=== PATIENT | female | born 1960 | race Caucasian/White ===

== ENCOUNTER 2020-04-17 11:02 | Outpatient (REF) | payer MEDICARE, MEDICAID, SELFPAY ==
[2020-04-17 14:04] LABS: INTERNATIONAL NORM RATIO 3.1 (0.9-1.1); Prothrombin Time 37.6 SEC (10.8-13.0)
== END 2020-04-17 11:03 | disposition home or self-care (01) ==
LOC: HO.HMGCLR 11:02
PROVIDERS: PCP Internal Medicine; Visit Provider Internal Medicine
DX: Z79.01 Long term (current) use of anticoagulants (principal)
CPT/HCPCS: 36415; 85610

== ENCOUNTER 2020-04-21 09:00 | Outpatient (REF) | payer MEDICARE, MEDICAID, SELFPAY ==
--- NOTE | 2020-04-21 | CT_ITS ---
EXAMINATION: CT CHEST SCREENING CLINICAL INFORMATION: Smoker. COMPARISON: CT chest 03/21/2019. TECHNIQUE: Multidetector volumetric CT imaging of the chest is performed without contrast using low dose technique. Additional 2D coronal and sagittal reformatted images and axial 3D maximum intensity projection (MIP) images are generated on the CT workstation. This CT examination was performed using dose optimization techniques as appropriate, variously including the following: *Automated exposure control *Adjustment of mA and/or kV according to patient size (this includes techniques or standardized protocols for targeted exams where dose is matched to indication/reason for exam; i.e. extremities or head) *Use of iterative reconstruction technique DLP: 50 mGy-cm. FINDINGS: LUNGS: The lungs are well-expanded and clear of acute pneumonic consolidation. There is no pulmonary nodule, mass or consolidation. Previously seen left subpleural density in the left lower lobe is not visualized at this time. No other nodules seen. MEDIASTINUM: The thyroid lobes are symmetrical and normal. Central trachea and the bronchi are widely patent. Heart size and the great vessels are normal caliber. There are coronary artery calcifications present. There is no pericardial effusion. PLEURA: There is no pleural effusion. No pleural mass or thickening. AXILLA: No lymphadenopathy. UPPER ABDOMEN: Visualized liver, spleen, pancreas and bilateral adrenal glands are unremarkable. OSSEOUS STRUCTURES: No lytic or sclerotic process seen. CT/CT lung screening IMPRESSION: No evidence of pulmonary nodules seen at this time. ASSESSMENT: Lung RADS category 1, benign. RECOMMENDATION: Annual low-dose CT chest follow-up.
== END 2020-04-21 09:01 | disposition home or self-care (01) ==
LOC: HO.CT 09:00
PROVIDERS: Visit Provider Physician Assistant Medical
DX: Z12.2 Encounter for screening for malignant neoplasm of respiratory organs (principal); F17.210 Nicotine dependence, cigarettes, uncomplicated
CPT/HCPCS: 71250

== ENCOUNTER 2020-05-01 10:00 | Outpatient (REF) | payer MEDICARE, MEDICAID, SELFPAY ==
[2020-05-01 11:28] LABS: INTERNATIONAL NORM RATIO 3.2 (0.9-1.1); Prothrombin Time 37.9 SEC (10.8-13.0)
== END 2020-05-01 10:01 | disposition home or self-care (01) ==
LOC: HO.HMGCLR 10:00
PROVIDERS: PCP Internal Medicine; Visit Provider Internal Medicine
DX: Z79.01 Long term (current) use of anticoagulants (principal)
CPT/HCPCS: 36415; 85610

== ENCOUNTER 2020-05-26 07:21 | Outpatient (REF) | payer MEDICARE, MEDICAID, SELFPAY ==
[2020-05-26 11:14] LABS: Basophils Absolute Auto 0.1 X10*3/uL (0.0-0.2); Basophils Percent Auto 0.9 % (0-2); Eosinophils Absolute Auto 0.3 X10*3/uL (0.0-0.4); Eosinophils Percent Auto 3.9 % (0-4); Hematocrit 43.3 % (37-47); Hemoglobin 14.3 g/dl (12.0-16.0); Imm Gran Abs Auto 0.01 X10*3/uL (0.00-0.03); Imm Gran Pct Auto 0.1 % (0.0-0.4); Lymphocytes Absolute Auto 5.1 X10*3/uL (1.2-4.9); Lymphocytes Percent Auto 58.1 % (20-40); MANUAL DIFF FLAG SCAN; Mean Corpuscular Hemoglobin 30.4 pg (27.0-33.0); Mean Corpuscular Volume 92.1 fL (80-98); Mean Platelet Volume 10.1 fL (9.4-12.3); Monocytes Absolute Auto 0.5 X10*3/uL (0.1-1.2); Monocytes Percent Auto 6.1 % (2-11); Neutrophils Absolute Auto 2.7 X10*3/uL (2.0-8.3); Neutrophils Percent Auto 30.9 % (45-73); Platelet Count 402 X10*3/uL (160-400); Red Cell Distribution Width 13.8 % (11.0-16.0); SCAN SMEAR FLAG 1; White Blood Count 8.8 X10*3/uL (4.8-10.8)
[2020-05-26 11:25] LABS: INTERNATIONAL NORM RATIO 3.3 (0.9-1.1); Prothrombin Time 39.5 SEC (10.8-13.0)
[2020-05-26 11:36] LABS: SLIDE REVIEW VERIFIED
[2020-05-26 11:42] LABS: Anion Gap 15 (12-20); Blood Urea Nitrogen 21 mg/dL (9-16); Calcium 9.3 mg/dL (8.4-10.2); Carbon Dioxide 25 mmol/L (22-29); Chloride 104 mmol/L (96-108); Cholesterol 251 mg/dL; Estimated Glomerular Filt Rate > 60; Glucose Fasting 92 mg/dL (60-99); HDL Cholesterol 56 mg/dL; LDL Cholesterol Calculated 163 mg/dl; Potassium 4.6 mmol/l (3.3-5.1); Sodium 139 mmol/L (135-145); Triglycerides 162 mg/dL
[2020-05-26 12:05] LABS: TSH reflex Free T4 1.95 mIU/mL (0.32-4.0)
== END 2020-05-26 07:22 | disposition home or self-care (01) ==
LOC: HO.HMGCLDS 07:21
PROVIDERS: PCP Internal Medicine; Visit Provider Internal Medicine
DX: F41.1 Generalized anxiety disorder (principal); G47.9 Sleep disorder, unspecified; K21.9 Gastro-esophageal reflux disease without esophagitis; R35.1 Nocturia; Z79.01 Long term (current) use of anticoagulants
CPT/HCPCS: 36415; 80048; 80061; 84443; 85025; 85610

== ENCOUNTER 2020-06-10 09:50 | Outpatient (REF) | payer MEDICARE, MEDICAID, SELFPAY ==
[2020-06-10 11:28] LABS: INTERNATIONAL NORM RATIO 1.8 (0.9-1.1); Prothrombin Time 21.3 SEC (10.8-13.0)
== END 2020-06-10 09:51 | disposition home or self-care (01) ==
LOC: HO.HMGCLR 09:50
PROVIDERS: PCP Internal Medicine; Visit Provider Internal Medicine
DX: Z79.01 Long term (current) use of anticoagulants (principal)
CPT/HCPCS: 36415; 85610

== ENCOUNTER 2020-06-30 13:53 | Outpatient (REF) | payer MEDICARE, MEDICAID, SELFPAY ==
[2020-06-30 16:38] LABS: INTERNATIONAL NORM RATIO 2.6 (0.9-1.1); Prothrombin Time 31.7 SEC (10.8-13.0)
== END 2020-06-30 13:54 | disposition home or self-care (01) ==
LOC: HO.HMGCLDS 13:53
PROVIDERS: PCP Internal Medicine; Visit Provider Internal Medicine
DX: Z79.01 Long term (current) use of anticoagulants (principal)
CPT/HCPCS: 36415; 85610

== ENCOUNTER 2020-07-30 09:37 | Outpatient (REF) | payer MEDICARE, MEDICAID, SELFPAY ==
[2020-07-30 11:23] LABS: INTERNATIONAL NORM RATIO 1.3 (0.9-1.1); Prothrombin Time 15.3 SEC (10.8-13.0)
== END 2020-07-30 09:38 | disposition home or self-care (01) ==
LOC: HO.HMGCLDS 09:37
PROVIDERS: PCP Internal Medicine; Visit Provider Internal Medicine
DX: Z79.01 Long term (current) use of anticoagulants (principal)
CPT/HCPCS: 36415; 85610

== ENCOUNTER 2020-08-20 07:11 | Outpatient (REF) | payer MEDICARE, MEDICAID, SELFPAY ==
[2020-08-20 11:23] LABS: INTERNATIONAL NORM RATIO 3.5 (0.9-1.1); Prothrombin Time 41.9 SEC (10.8-13.0)
== END 2020-08-20 07:12 | disposition home or self-care (01) ==
LOC: HO.HMGCLDS 07:11
PROVIDERS: PCP Internal Medicine; Visit Provider Internal Medicine
DX: Z79.01 Long term (current) use of anticoagulants (principal)
CPT/HCPCS: 36415; 85610

== ENCOUNTER 2020-08-29 08:58 | Outpatient (REF) | payer MEDICARE, MEDICAID, SELFPAY ==
[2020-08-29 11:22] LABS: INTERNATIONAL NORM RATIO 3.4 (0.9-1.1); Prothrombin Time 40.5 SEC (10.8-13.0)
== END 2020-08-29 08:59 | disposition home or self-care (01) ==
LOC: HO.HMGCLDS 08:58
PROVIDERS: PCP Internal Medicine; Visit Provider Internal Medicine
DX: Z79.01 Long term (current) use of anticoagulants (principal)
CPT/HCPCS: 36415; 85610

== ENCOUNTER 2020-09-24 10:20 | Outpatient (REF) | payer MEDICARE, MEDICAID, SELFPAY ==
[2020-09-24 11:35] LABS: INTERNATIONAL NORM RATIO 2.8 (0.9-1.1)
== END 2020-09-24 10:21 | disposition home or self-care (01) ==
LOC: HO.HMGCLDS 10:20
PROVIDERS: PCP Internal Medicine; Visit Provider Internal Medicine
DX: Z79.01 Long term (current) use of anticoagulants (principal)
CPT/HCPCS: 36415; 85610

== ENCOUNTER 2020-10-24 10:18 | Outpatient (REF) | payer MEDICARE, MEDICAID, SELFPAY ==
[2020-10-24 11:55] LABS: INTERNATIONAL NORM RATIO 2.8 (0.9-1.1); Prothrombin Time 33.1 SEC (10.8-13.0)
== END 2020-10-24 10:19 | disposition home or self-care (01) ==
LOC: HO.HMGCLDS 10:18
PROVIDERS: PCP Internal Medicine; Visit Provider Internal Medicine
DX: Z79.01 Long term (current) use of anticoagulants (principal)
CPT/HCPCS: 36415; 85610

== ENCOUNTER 2020-11-05 10:54 | Outpatient (REF) | payer MEDICARE, MEDICAID, SELFPAY ==
[2020-11-05 13:59] LABS: MANUAL DIFF FLAG NO
[2020-11-05 14:03] LABS: Basophils Percent Auto 0.5 % (0-2); Eosinophils Absolute Auto 0.1 X10*3/uL (0.0-0.4); Eosinophils Percent Auto 1.4 % (0-4); Hematocrit 41.6 % (37-47); Hemoglobin 13.7 g/dl (12.0-16.0); Imm Gran Abs Auto 0.02 X10*3/uL (0.00-0.03); Imm Gran Pct Auto 0.3 % (0.0-0.4); Lymphocytes Absolute Auto 3.1 X10*3/uL (1.2-4.9); Mean Corpuscular HGB Conc 32.9 g/dl (31.0-35.0); Mean Platelet Volume 10.1 fL (9.4-12.3); Monocytes Absolute Auto 0.4 X10*3/uL (0.1-1.2); Monocytes Percent Auto 4.8 % (2-11); Neutrophils Absolute Auto 3.7 X10*3/uL (2.0-8.3); Platelet Count 387 X10*3/uL (160-400); Red Blood Count 4.57 X10*6/uL (4.20-5.50); Red Cell Distribution Width 13.7 % (11.0-16.0); White Blood Count 7.3 X10*3/uL (4.8-10.8)
[2020-11-05 14:15] LABS: INTERNATIONAL NORM RATIO 2.7 (0.9-1.1); Prothrombin Time 32.8 SEC (10.8-13.0)
[2020-11-05 14:26] LABS: Alanine Aminotransferase 22 U/L (0-31); Albumin Level 4.5 g/dL (3.5-5.0); Alkaline Phosphatase 76 U/L (39-117); Anion Gap 12 (12-20); Aspartate Amino Transferase 20 U/L (5-31); Bilirubin Total 0.2 mg/dL (0.0-1.0); Blood Urea Nitrogen 21 mg/dL (9-16); Calcium 9.7 mg/dL (8.4-10.2); Carbon Dioxide 25 mmol/L (22-29); Chloride 107 mmol/L (96-108); Estimated Glomerular Filt Rate > 60; Glucose Random 111 mg/dL (60-115); Potassium 4.4 mmol/L (3.3-5.1); Sodium 140 mmol/L (135-145); Total Protein 7.1 g/dL (6.5-8.0)
[2020-11-05 14:48] LABS: TSH reflex Free T4 0.72 uIU/mL (0.32-4.0)
[2020-11-05 15:31] LABS: Vitamin B12 161 pg/mL (200-900)
[2020-11-06 08:16] LABS: LDL Cholesterol Direct 172 mg/dL (<100)
[2020-11-08 14:27] LABS: Vitamin D 25-OH, D2 <4 ng/mL; Vitamin D 25-OH, D3 33 ng/mL; Vitamin D 25-OH, Total 33 ng/mL (30-100)
== END 2020-11-05 10:55 | disposition home or self-care (01) ==
LOC: HO.HMGCLDS 10:54
PROVIDERS: PCP Internal Medicine; Visit Provider Internal Medicine
DX: R53.82 Chronic fatigue, unspecified (principal); G47.9 Sleep disorder, unspecified; F41.1 Generalized anxiety disorder; G44.89 Other headache syndrome; M62.838 Other muscle spasm; M85.80 Other specified disorders of bone density and structure, unspecified site; D68.51 Activated protein C resistance; K21.9 Gastro-esophageal reflux disease without esophagitis; Z79.01 Long term (current) use of anticoagulants; Z72.0 Tobacco use
CPT/HCPCS: 36415; 80053; 82306; 82607; 83721; 84443; 85025; 85610

== ENCOUNTER 2020-12-15 09:25 | Outpatient (REF) | payer MEDICARE, MEDICAID, SELFPAY ==
[2020-12-15 11:33] LABS: INTERNATIONAL NORM RATIO 2.4 (0.9-1.1); Prothrombin Time 28.5 SEC (10.8-13.0)
== END 2020-12-15 09:26 | disposition home or self-care (01) ==
LOC: HO.HMGCLDS 09:25
PROVIDERS: PCP Internal Medicine; Visit Provider Internal Medicine
DX: Z79.01 Long term (current) use of anticoagulants (principal)
CPT/HCPCS: 36415; 85610

== ENCOUNTER 2021-01-13 09:05 | Outpatient (REF) | payer MEDICARE, MEDICAID, SELFPAY ==
[2021-01-13 11:35] LABS: INTERNATIONAL NORM RATIO 2.7 (0.9-1.1); Prothrombin Time 31.5 SEC (9.9-13.0)
== END 2021-01-13 09:06 | disposition home or self-care (01) ==
LOC: HO.HMGCLDS 09:05
PROVIDERS: PCP Internal Medicine; Visit Provider Internal Medicine
DX: Z79.01 Long term (current) use of anticoagulants (principal)
CPT/HCPCS: 36415; 85610

== ENCOUNTER 2021-02-13 10:04 | Outpatient (REF) | payer MEDICARE, MEDICAID, SELFPAY ==
[2021-02-13 12:02] LABS: INTERNATIONAL NORM RATIO 2.6 (0.9-1.1)
== END 2021-02-13 10:05 | disposition home or self-care (01) ==
LOC: HO.HMGCLDS 10:04
PROVIDERS: PCP Internal Medicine; Visit Provider Internal Medicine
DX: M85.80 Other specified disorders of bone density and structure, unspecified site (principal); Z79.01 Long term (current) use of anticoagulants
CPT/HCPCS: 36415; 85610

== ENCOUNTER → 2021-04-20 13:18 | Outpatient (BNVA) | payer MEDICARE, MEDICAID, SELFPAY | PROVIDERS: PCP Internal Medicine; Referring Provider Internal Medicine; Visit Provider Internal Medicine | DX: R94.31 Abnormal electrocardiogram [ECG] [EKG] (principal); R07.2 Precordial pain; R06.02 Shortness of breath; F17.200 Nicotine dependence, unspecified, uncomplicated | CPT/HCPCS: 93005; 99202 ==

== ENCOUNTER 2021-05-20 09:11 | Outpatient (REF) | payer MEDICARE, MEDICAID, SELFPAY ==
[2021-05-20 11:30] LABS: INTERNATIONAL NORM RATIO 2.7 (0.9-1.1); Prothrombin Time 31.6 SEC (9.9-13.0)
== END 2021-05-20 09:12 | disposition home or self-care (01) ==
LOC: HO.HMGCLDS 09:11
PROVIDERS: PCP Internal Medicine; Visit Provider Internal Medicine
DX: Z79.01 Long term (current) use of anticoagulants (principal)
CPT/HCPCS: 36415; 85610

== ENCOUNTER 2021-05-22 13:34 | Outpatient (REF) | payer MEDICARE, MEDICAID, SELFPAY ==
--- NOTE | ~2021-05-22 | MM_ITS ---
EXAMINATION: MM SCREENING DIGITAL BREAST TOMOSYNTHESIS, BILATERAL CLINICAL INFORMATION: Screening. Asymptomatic. The lifetime risk of breast cancer based on the Tyrer-Cuzick Model is 5.5%. COMPARISON: Mammography: August 05, 2017 and December 21, 2011 TECHNIQUE: Digital breast tomosynthesis is performed in both the craniocaudal and mediolateral oblique views along with computer-aided detection (CAD). Synthesized 2D images are generated from the tomosynthesis. FINDINGS: There are scattered areas of fibroglandular density (ACR BI-RADS breast composition Category b). There are no significant masses, abnormal calcifications, or other abnormalities. MM/MM tomosynthesis screening BI IMPRESSION: There are no significant changes from prior study. ASSESSMENT: BI-RADS 1: Negative RECOMMENDATION: Routine annual mammography screening. This patient's information was entered into a reminder system with a target due date for their next mammogram.
== END 2021-05-22 13:35 | disposition home or self-care (01) ==
LOC: HO.MAMMO 13:34
PROVIDERS: Visit Provider Internal Medicine
DX: Z12.31 Encounter for screening mammogram for malignant neoplasm of breast (principal)
CPT/HCPCS: 77063; 77067

== ENCOUNTER 2021-06-17 11:05 | Outpatient (REF) | payer MEDICARE, MEDICAID, SELFPAY ==
[2021-06-17 14:50] LABS: Prothrombin Time 35.2 SEC (9.9-13.0)
[2021-06-17 15:12] LABS: Alanine Aminotransferase 23 U/L (0-31); Albumin Level 4.5 g/dL (3.5-5.0); Alkaline Phosphatase 71 U/L (39-117); Anion Gap 13 (12-20); Aspartate Amino Transferase 17 U/L (5-31); Bilirubin Total 0.2 mg/dL (0.0-1.0); Blood Urea Nitrogen 20 mg/dL (9-16); Calcium 9.7 mg/dL (8.4-10.2); Carbon Dioxide 23 mmol/L (22-29); Chloride 108 mmol/L (96-108); Cholesterol 259 mg/dL; Estimated Glomerular Filt Rate > 60; Glucose Fasting 95 mg/dL (60-99); HDL Cholesterol 52 mg/dL; LDL Cholesterol Calculated 161 mg/dl; Potassium 4.3 mmol/L (3.3-5.1); Sodium 140 mmol/L (135-145); Total Protein 7.3 g/dL (6.5-8.0); Triglycerides 232 mg/dL
[2021-06-17 15:33] LABS: TSH reflex Free T4 0.83 uIU/mL (0.32-4.0)
[2021-06-17 15:34] LABS: Vitamin B12 287 pg/mL (200-900)
[2021-06-22 13:13] LABS: Vitamin D 25-OH, D2 <4 ng/mL; Vitamin D 25-OH, D3 38 ng/mL; Vitamin D 25-OH, Total 38 ng/mL (30-100)
== END 2021-06-17 11:06 | disposition home or self-care (01) ==
LOC: HO.HMGCLDS 11:05
PROVIDERS: PCP Internal Medicine; Visit Provider Internal Medicine
DX: G44.89 Other headache syndrome (principal); F41.1 Generalized anxiety disorder; G47.9 Sleep disorder, unspecified; K21.9 Gastro-esophageal reflux disease without esophagitis; D68.51 Activated protein C resistance; E53.8 Deficiency of other specified B group vitamins; E78.9 Disorder of lipoprotein metabolism, unspecified; Z79.01 Long term (current) use of anticoagulants
CPT/HCPCS: 36415; 80053; 80061; 82306; 82607; 84443; 85610

== ENCOUNTER 2021-07-27 10:12 | Outpatient (REF) | payer MEDICARE, MEDICAID, SELFPAY ==
[2021-07-27 11:24] LABS: INTERNATIONAL NORM RATIO 3.6 (0.9-1.1); Prothrombin Time 41.9 SEC (9.9-13.0)
== END 2021-07-27 10:13 | disposition home or self-care (01) ==
LOC: HO.HMGCLDS 10:12
PROVIDERS: Visit Provider Internal Medicine
DX: Z79.01 Long term (current) use of anticoagulants (principal)
CPT/HCPCS: 36415; 85610

== ENCOUNTER 2021-08-07 09:07 | Outpatient (REF) | payer MEDICARE, MEDICAID, SELFPAY ==
[2021-08-07 11:57] LABS: INTERNATIONAL NORM RATIO 2.3 (0.9-1.1); Prothrombin Time 26.4 SEC (9.9-13.0)
== END 2021-08-07 09:08 | disposition home or self-care (01) ==
LOC: HO.HMGCLDS 09:07
PROVIDERS: Visit Provider Internal Medicine
DX: Z79.01 Long term (current) use of anticoagulants (principal)
CPT/HCPCS: 36415; 85610

== ENCOUNTER 2021-10-31 07:16 | Emergency (ER) | payer MEDICARE, MEDICAID, SELFPAY | END 2021-10-31 09:19 | disposition left against medical advice (07) | PROVIDERS: Emergency Provider Emergency Medicine; PCP Internal Medicine | DX: M79.605 Pain in left leg (principal) ==

== ENCOUNTER 2021-10-31 10:52 | Outpatient (REF) | payer MEDICARE, MEDICAID, SELFPAY ==
[2021-10-31 13:31] LABS: Hematocrit 40.5 % (37.0-47.0); Hemoglobin 13.2 g/dl (12.0-16.0); Mean Corpuscular HGB Conc 32.6 g/dl (31.0-35.0); Mean Corpuscular Hemoglobin 29.9 pg (27.0-33.0); Mean Corpuscular Volume 91.6 fL (80.0-98.0); Platelet Count 396 X10*3/uL (160-400); Red Blood Count 4.42 X10*6/uL (4.20-5.50); Red Cell Distribution Width 14.4 % (11.0-16.0); White Blood Count 8.5 X10*3/uL (4.8-10.8)
[2021-10-31 13:39] LABS: INTERNATIONAL NORM RATIO 1.9 (0.9-1.1); Prothrombin Time 21.3 SEC (9.9-13.0)
[2021-10-31 13:49] LABS: D Dimer High Sensitivity < 150 NG/ML
[2021-11-02 08:22] LABS: Folate 18.2 ng/mL (> or = 4.0); Vitamin B12 654 pg/mL (200-900)
[2021-11-04 09:45] LABS: Intrinsic Factor Antibodies Negative (Negative)
[2021-11-05 23:15] LABS: Parietal Cell Antibody <=20.0 Unit (<=20.0)
== END 2021-10-31 10:53 | disposition home or self-care (01) ==
LOC: HO.HMGCLDS 10:52
PROVIDERS: Visit Provider Physician Assistant
DX: Z13.89 Encounter for screening for other disorder (principal)
CPT/HCPCS: 36415; 82607; 82746; 83516; 85027; 85379; 85610; 86340

== ENCOUNTER 2021-10-31 12:54 | Outpatient (REF) | payer MEDICARE, MEDICAID, SELFPAY ==
--- NOTE | ~2021-10-31 | US_ITS ---
EXAMINATION: LEFT LOWER EXTREMITY DEEP VENOUS ULTRASOUND CLINICAL INFORMATION: Left lower extremity swelling. History of factor V Leiden. COMPARISON: None. TECHNIQUE: Duplex Doppler imaging with compression maneuvers were performed of the left lower extremity deep venous system. FINDINGS: The visualized common femoral, femoral and popliteal veins demonstrate normal compressibility and color flow without evidence of venous thrombosis. Visualized portions of the calf veins demonstrate normal color fill-in suggesting patency. There is no evidence of a Ahuja's cyst. US/US venous duplex LE LT IMPRESSION: No evidence of deep venous thrombosis involving the left lower extremity.
== END 2021-10-31 12:55 | disposition home or self-care (01) ==
LOC: HO.US 12:54
PROVIDERS: Visit Provider Physician Assistant
DX: R60.0 Localized edema (principal); M79.89 Other specified soft tissue disorders
CPT/HCPCS: 36415; 82607; 82746; 83516; 85027; 85379; 85610; 86340; 93971

== ENCOUNTER 2021-12-07 08:47 | Outpatient (REF) | payer MEDICARE, MEDICAID, SELFPAY ==
[2021-12-07 11:52] LABS: INTERNATIONAL NORM RATIO 4.2 (0.9-1.1); Prothrombin Time 49.3 SEC (9.9-13.0)
== END 2021-12-07 08:48 | disposition home or self-care (01) ==
LOC: HO.HMGCLDS 08:47
PROVIDERS: PCP Internal Medicine; Visit Provider Internal Medicine
DX: Z79.01 Long term (current) use of anticoagulants (principal)
CPT/HCPCS: 36415; 85610

== ENCOUNTER → 2022-01-04 14:00 | Outpatient (BNVA) | payer MEDICARE, MEDICAID, SELFPAY | PROVIDERS: PCP Internal Medicine; Visit Provider Internal Medicine | DX: R06.09 Other forms of dyspnea (principal); F17.210 Nicotine dependence, cigarettes, uncomplicated | CPT/HCPCS: 99202 ==

== ENCOUNTER 2022-01-08 15:50 | Outpatient (REF) | payer MEDICARE, MEDICAID, SELFPAY ==
--- NOTE | 2022-01-08 17:31 | PFT_ITS ---
INDICATION: Wheezing. SPIROMETRY: The FEV1 to FVC of 84% with an FEV1 of 2.35 L, which is 101% predicted and an FVC of 2.78 L, which is 92% predicted. No significant response to bronchodilators noted. Maximum voluntary ventilation 120% predicted. LUNG VOLUMES: Total lung capacity 101% predicted with an expiratory reserve volume of 16% predicted. DIFFUSION CAPACITY: DLCO 81% predicted. COMPARISONS: None. INTERPRETATION: No obstructive nor restrictive ventilatory defects identified. No significant response to bronchodilators noted. Normal maximum voluntary ventilation. Lung volumes are normal except for decrease in the expiratory reserve volume secondary to an elevated BMI. The patient also has a low normal diffusion capacity. If asthma is in the differential, methacholine challenge may be helpful in assessing for hyper-reactive airways, otherwise clinical diagnosis is warranted. MD ELIEZER Deng/MODFrantz / [id number]
== END 2022-01-08 15:51 | disposition home or self-care (01) ==
LOC: HO.RESP 15:50
PROVIDERS: PCP Internal Medicine; Visit Provider Internal Medicine
DX: R06.2 Wheezing (principal); R06.89 Other abnormalities of breathing
CPT/HCPCS: 94060; 94727; 94729

== ENCOUNTER 2022-01-20 09:30 | Outpatient (REF) | payer MEDICARE, MEDICAID, SELFPAY ==
[2022-01-20 11:38] LABS: INTERNATIONAL NORM RATIO 3.9 (0.9-1.1); Prothrombin Time 46.9 SEC (10.0-13.1)
== END 2022-01-20 09:31 | disposition home or self-care (01) ==
LOC: HO.HMGCLR 09:30
PROVIDERS: PCP Internal Medicine; Visit Provider Internal Medicine
DX: Z79.01 Long term (current) use of anticoagulants (principal)
CPT/HCPCS: 36415; 85610

== ENCOUNTER → 2022-01-27 13:20 | Outpatient (BNVA) | payer MEDICARE, MEDICAID, SELFPAY | PROVIDERS: PCP Internal Medicine; Visit Provider Internal Medicine | DX: D68.51 Activated protein C resistance (principal); Z79.01 Long term (current) use of anticoagulants; Z51.81 Encounter for therapeutic drug level monitoring | CPT/HCPCS: 85610; 99202 ==

== ENCOUNTER → 2022-02-04 13:46 | Outpatient (BNVA) | payer MEDICARE, MEDICAID, SELFPAY | PROVIDERS: PCP Internal Medicine; Visit Provider Internal Medicine | DX: D68.51 Activated protein C resistance (principal); F41.1 Generalized anxiety disorder; R06.09 Other forms of dyspnea; F17.210 Nicotine dependence, cigarettes, uncomplicated; Z79.01 Long term (current) use of anticoagulants; Z51.81 Encounter for therapeutic drug level monitoring | CPT/HCPCS: 85610; 99211; 99212 ==

== ENCOUNTER → 2022-02-12 13:16 | Outpatient (BNVA) | payer MEDICARE, MEDICAID, SELFPAY | PROVIDERS: PCP Internal Medicine; Visit Provider Internal Medicine | DX: D68.51 Activated protein C resistance (principal); Z79.01 Long term (current) use of anticoagulants; Z51.81 Encounter for therapeutic drug level monitoring | CPT/HCPCS: 85610; 99211 ==

== ENCOUNTER 2022-02-24 09:35 | Outpatient (REF) | payer MEDICARE, MEDICAID, SELFPAY ==
[2022-02-24 12:17] LABS: Alanine Aminotransferase 19 U/L (0-31); Albumin Level 4.5 g/dL (3.5-5.0); Alkaline Phosphatase 85 U/L (39-117); Anion Gap 16 (12-20); Aspartate Amino Transferase 17 U/L (5-31); Bilirubin Total 0.3 mg/dL (0.0-1.0); Blood Urea Nitrogen 16 mg/dL (9-16); Calcium 9.5 mg/dL (8.4-10.2); Carbon Dioxide 24 mmol/L (22-29); Chloride 105 mmol/L (96-108); Estimated Glomerular Filt Rate > 60; Glucose Random 125 mg/dL (60-115); Potassium 4.3 mmol/L (3.3-5.1); Sodium 141 mmol/L (135-145); Total Protein 7.6 g/dL (6.5-8.0)
[2022-02-24 13:21] LABS: Vitamin B12 283 pg/mL (200-900)
[2022-02-25 15:56] LABS: LDL Cholesterol Direct 160 mg/dL (<100)
== END 2022-02-24 09:36 | disposition home or self-care (01) ==
LOC: HO.HMGCLDS 09:35
PROVIDERS: PCP Internal Medicine; Visit Provider Internal Medicine
DX: Z01.818 Encounter for other preprocedural examination (principal); M62.838 Other muscle spasm; R53.82 Chronic fatigue, unspecified; E78.9 Disorder of lipoprotein metabolism, unspecified; H26.9 Unspecified cataract
CPT/HCPCS: 36415; 80053; 82607; 83721

== ENCOUNTER → 2022-02-26 13:18 | Outpatient (BNVA) | payer MEDICARE, MEDICAID, SELFPAY | PROVIDERS: PCP Internal Medicine; Visit Provider Internal Medicine | DX: D68.51 Activated protein C resistance (principal); Z79.01 Long term (current) use of anticoagulants; Z51.81 Encounter for therapeutic drug level monitoring | CPT/HCPCS: 85610; 99211 ==

== ENCOUNTER 2022-03-08 07:29 | Day surgery (SDC) | payer MEDICARE, MEDICAID, SELFPAY ==
[2022-03-02 16:43] VITALS: BMI 35.3
--- NOTE | 2022-03-04 13:33 | MHC.SHP ---
Pre-Procedural Eval Section A Date of Service: 03/04/22 The patient is an INPATIENT: No Changes since office visit: No Cold of Flu in the past 2 weeks, No New Medical Problems, No Changes in Medication and No Patient answered all questions The History & Physical has been completed within 30 days and I have reviewed it.: Yes Section B Chief Complaint: cataract Allergies: Allergies Allergy/AdvReac Type Severity Reaction Status Date / Time aspirin Allergy Unknown anaphylaxis Verified 02/26/22 13:21 NSAIDS (Non-Steroidal AdvReac Abdominal Verified 02/26/22 13:21 Anti-Inflamma Pain Plan Diagnosis/Plan: Unchanged I have reviewed the history and physical and performed a pertinent physical examination on my patient. No changes have occurred unless specified.
--- NOTE | 2022-03-05 09:32 | HO.ANESPROP2 ---
Documented by User: Dona Farrar NP 03/05/22 09:33 HPI - Anesthesia Eval Consult details Narrative: 61yo F for Left Cataract Extraction IOL Insertion PCP cleared No previous cataract on record Warfarin for Factor V PMFSH Active Problems Active Problems: All Active Problems (Updated 02/24/22 @ 09:25 by Shilo Combs MD) Cataract (Acute) GERD (gastroesophageal reflux disease) (Acute) Nocturia (Acute) Cough (Acute) Pre-op evaluation (Acute) Muscle spasms of both lower extremities (Acute) Chronic fatigue (Acute) Low vitamin B12 level (Acute) Lipid disorder (Acute) Medicare annual wellness visit, initial (Acute) Breast screening (Acute) Colonoscopy refused (Acute) Glaucoma, left eye (Acute) Encounter for routine gynecological examination (Acute) Abnormal EKG (Acute) Precordial chest pain (Acute) Smoking (Acute) Left leg swelling (Acute) Difficulty breathing (Acute) Wheezing (Acute) Current use of anticoagulant therapy (Acute) Dyspnea on exertion (Acute) Factor 5 Leiden mutation, heterozygous (Acute) Warfarin anticoagulation (Acute) Headache syndrome (Acute) Anxiety, generalized (Acute) Difficulty sleeping (Acute) Tobacco abuse (Acute) Shortness of breath (Acute) Osteopenia (Acute) Past Medical History Medical History Anxiety, generalized Difficulty sleeping Dyspnea on exertion Factor 5 Leiden mutation, heterozygous Headache syndrome Memory difficulties Osteopenia Shortness of breath Smoker Tobacco abuse Warfarin anticoagulation Family History Family History Father No problems noted. Mother HTN (hypertension) Stroke Factor V Leiden Sister No problems noted. Other Mental health disorder Surgical History Surgical History History of ankle surgery History of tubal ligation Social History Social History Housing: House Housing Other:: Rents room in Sisters house Are you a primary managed care provider to a significant other at home: No Do you presently have visiting nurse or other home services: No Alcohol intake: never Patient Tobacco Use Status: Current everyday Tobacco user Tobacco use type: Cigarette Cigarette Packs Per Day: 0.35 Cigarettes Per Day: 10.0 Years Smoked: 50 e-Cigarette/Vaping Use: Currently Using Second Hand Smoke Exposure: No Use of substances other than those prescribed or required for medical reasons: Yes Substance Use Frequency: Daily Are you DNR?: No Advance Directives: No Advance Directives Information Provided: Yes Advance Directives on File: No service: No Current occupational status: unemployed 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 Current occupational exposures/hazards: No Cognitive needs: No Hearing needs: No Vision needs: No Meds Allergies Allergy/AdvReac Type Severity Reaction Status Date / Time aspirin Allergy Unknown anaphylaxis Verified 02/26/22 13:21 NSAIDS (Non-Steroidal AdvReac Abdominal Verified 02/26/22 13:21 Anti-Inflamma Pain Home Medications Medication Instructions Recorded Confirmed Last Taken Type fluticasone furoate 200 1 puff inhalation DAILY 03/02/22 03/02/22 Unknown History mcg-vilanterol 25 mcg/dose inhalation powder (Breo Ellipta) Exam Exam Date and Time: March 05, 2022 0932 Height,Weight and Vital Signs: Height 5 ft 2 in Weight 87.543 kg Assessment and Plan Assessment Anesthesia Assessment: Chart Reviewed Documented by User: Milo Jacobs MD 03/08/22 09:17 [facility] Past Medical History Medical History Anxiety, generalized Difficulty sleeping Dyspnea on exertion Factor 5 Leiden mutation, heterozygous Headache syndrome Memory difficulties Osteopenia Shortness of breath Smoker Tobacco abuse Warfarin anticoagulation Family History Family History Father No problems noted. Mother HTN (hypertension) Stroke Factor V Leiden Sister No problems noted. Other Mental health disorder Family history of problems with anesthesia: No Surgical History Surgical History History of ankle surgery History of tubal ligation History of Problems with Anesthesia: No Social History Social History Housing: House Housing Other:: Rents room in [facility] house Are you a primary managed care provider to a significant other at home: No Do you presently have visiting nurse or other home services: No Alcohol intake: never Patient Tobacco Use Status: Current everyday Tobacco user Tobacco use type: Cigarette Cigarette Packs Per Day: 0.35 Cigarettes Per Day: 10.0 Years Smoked: 50 e-Cigarette/Vaping Use: Currently Using Second Hand Smoke Exposure: No Use of substances other than those prescribed or required for medical reasons: Yes Substance Use Frequency: Daily Are you DNR?: No Advance Directives: No Advance Directives Information Provided: Yes Advance Directives on File: No service: No Current occupational status: unemployed 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 Current occupational exposures/hazards: No Cognitive needs: No Hearing needs: No Vision needs: No Meds Allergies Allergy/AdvReac Type Severity Reaction Status Date / Time aspirin Allergy Unknown anaphylaxis Verified 02/26/22 13:21 NSAIDS (Non-Steroidal AdvReac Abdominal Verified 02/26/22 13:21 Anti-Inflamma Pain Home Medications Medication Instructions Recorded Confirmed Last Taken Type fluticasone furoate 200 1 puff inhalation DAILY 03/02/22 03/02/22 Unknown History mcg-vilanterol 25 mcg/dose inhalation powder (Breo Ellipta) Exam Airway Mallampati Class: II TM Dist: >3cm Neck ROM: Full Loose/Missing/Broken Teeth: Yes (none loose poor dentition) Heart: [id number] Lungs: cta b/l Assessment and Plan Assessment Anesthesia Assessment: Anesthesia Plan Discussed Final Anesthetic Review Family History of Problems with Anesthesia: No History of Problems with Anesthesia: No NPO: Yes ASA Class: III Final Preanesthetic Review: No Changes in Pt Med Stat, Meds/Allgs Chart Reviewed, Consent Obtained/Reviewed and Anes Risks/Benef Reviewed Patient Risk: Intermediate Procedure Risk: Low Assessment/Block/Sedation in SS: Assess/Block/Sedation-SS Anesthetic Plan Anesthetic Plan: MAC: and Agree w/ Assess. and Plan Disposition: Standard PACU
[2022-03-08 08:41] VITALS: BP 115/69; PULSE 60; RESP 17; TEMP 36.6; O2SAT 97
[2022-03-08] MEDS: Tetracaine HCl/PF 0.5% Oph Sol 4 ML DROPS 1 DROP EYE-LEFT (08:44)
[2022-03-08] MEDS: Lactated Ringers 500 ML 50 ML IV (08:49)
[2022-03-08] MEDS: Cyclopentolate 1 % Ophth Sol 2 ML DRPBTL 1 DROP EYE-LEFT ×3 (08:50→09:01)
[2022-03-08] MEDS: Tropicamide 1 % Ophth Sol 3 ML BTL 1 DROP EYE-LEFT ×3 (08:51→09:02)
[2022-03-08] MEDS: Phenylephrine HCL 2.5% Oph SoL 2 ML BOTTLE 1 DROP EYE-LEFT ×3 (08:53→09:04)
--- NOTE | 2022-03-08 09:44 | HO.PNOPHT ---
Ophthalmology Procedure Procedure Date of Service: 03/08/22 Ophthalmology Viscoelastic: Healimelda Duet Dual Pack Pro Ophthalmology Lenses: TECLAYO [id number] (18) Procedure Notes: PREOPERATIVE DIAGNOSIS: Decreased visual acuity left eye secondary to cataract POSTOPERATIVE DIAGNOSIS: Same PROCEDURE: Left cataract extraction with intraocular lens insertion SURGEON: Francis Parker M.D. ANESTHESIA: Topical/MAC ESTIMATED BLOOD LOSS: None COMPLICATIONS: None After obtaining informed consent, the patient was brought to the operation room suite and placed in the supine position. After adequate sedation per anesthesia, topical drops of Tetracaine were given to the left eye. The eye was then prepped and draped in the usual sterile fashion. The operating room microscope was then positioned over the operative eye and a lid speculum placed. A paracentesis was created. Viscoelastic was then instilled into the anterior chamber. A three plane incision was then created temporally, utilizing a 2.85 mm keratome. Capsulotomy forceps were then utilized to create a circular tear capsulotomy. Hydrodissection and hydrodelineation were carried out until adequate mobilization of the nucleus occurred. Phacoemulsification was then utilized to remove the dense central nucleus followed by removal of the cortical material utilizing the automated aspiration irrigation unit. Viscoat elastic was instilled into the posterior capsular bag followed by placement of a posterior chamber intraocular lens without difficulty. The residual Viscoat elastic was then removed utilizing the automated IA machine. The wound was check and found to be watertight. The patient tolerated the procedure well and the lid speculum was removed. Intracameral injection of Vigamox 0.1 mL followed by a subtenon injection of Kenalog-40 0.2 mL were administered. The patient will be seen in the a.m.
[2022-03-08 10:11] VITALS: BP 132/69; PULSE 54; RESP 16; TEMP 36.6; O2SAT 95
== END 2022-03-08 10:15 | disposition home or self-care (01) ==
PROVIDERS: PCP Internal Medicine; Visit Provider Ophthalmology
PROC: (CPT 66985; principal; 2022-03-08 09:30)
DX: H25.12 Age-related nuclear cataract, left eye (principal); H54.7 Unspecified visual loss; Z83.511 Family history of glaucoma; J44.9 Chronic obstructive pulmonary disease, unspecified; D68.51 Activated protein C resistance; E78.9 Disorder of lipoprotein metabolism, unspecified; R53.82 Chronic fatigue, unspecified; G44.89 Other headache syndrome; R06.02 Shortness of breath; M85.80 Other specified disorders of bone density and structure, unspecified site; F41.1 Generalized anxiety disorder; F17.210 Nicotine dependence, cigarettes, uncomplicated; Z79.01 Long term (current) use of anticoagulants; Z79.51 Long term (current) use of inhaled steroids; Z88.8 Allergy status to other drugs, medicaments and biological substances
CPT/HCPCS: 66984; J2250; J3010; J3300; V2632

== ENCOUNTER → 2022-03-16 11:23 | Outpatient (BNVA) | payer MEDICARE, MEDICAID, SELFPAY | PROVIDERS: PCP Internal Medicine; Visit Provider Internal Medicine | DX: D68.51 Activated protein C resistance (principal); Z79.01 Long term (current) use of anticoagulants; Z51.81 Encounter for therapeutic drug level monitoring | CPT/HCPCS: 85610; 99211 ==

== ENCOUNTER 2022-04-09 14:26 | Outpatient (REF) | payer MEDICARE, MEDICAID, SELFPAY ==
[2022-04-09 16:43] LABS: INTERNATIONAL NORM RATIO 2.4 (0.9-1.1); Prothrombin Time 28.4 SEC (10.0-13.1)
== END 2022-04-09 14:27 | disposition home or self-care (01) ==
LOC: HO.HMGCLDS 14:26
PROVIDERS: PCP Internal Medicine; Visit Provider Internal Medicine
DX: D68.51 Activated protein C resistance (principal); Z79.01 Long term (current) use of anticoagulants
CPT/HCPCS: 36415; 85610

== ENCOUNTER 2022-05-28 12:45 | Outpatient (REF) | payer MEDICARE, MEDICAID, SELFPAY ==
[2022-05-28 14:27] LABS: INTERNATIONAL NORM RATIO 3.1 (0.9-1.1); Prothrombin Time 37.5 SEC (10.0-13.1)
== END 2022-05-28 12:46 | disposition home or self-care (01) ==
LOC: HO.HMGCLDS 12:45
PROVIDERS: PCP Internal Medicine; Visit Provider Internal Medicine
DX: D68.51 Activated protein C resistance (principal); Z79.01 Long term (current) use of anticoagulants
CPT/HCPCS: 36415; 85610

== ENCOUNTER 2022-07-10 06:31 | Outpatient (REF) | payer MEDICARE, MEDICAID, SELFPAY ==
[2022-07-10 11:17] LABS: MANUAL DIFF FLAG NO
[2022-07-10 11:26] LABS: Basophils Absolute Auto 0.1 X10*3/uL (0.0-0.2); Basophils Percent Auto 0.9 % (0-2); Eosinophils Absolute Auto 0.3 X10*3/uL (0.0-0.4); Eosinophils Percent Auto 3.8 % (0-4); Hematocrit 46.1 % (37.0-47.0); Imm Gran Abs Auto 0.02 X10*3/uL (0.00-0.03); Imm Gran Pct Auto 0.2 % (0.0-0.4); Lymphocytes Absolute Auto 4.3 X10*3/uL (1.2-4.9); Lymphocytes Percent Auto 48.7 % (20-40); Mean Corpuscular HGB Conc 32.5 g/dl (31.0-35.0); Mean Corpuscular Hemoglobin 29.2 pg (27.0-33.0); Mean Corpuscular Volume 89.9 fL (80.0-98.0); Mean Platelet Volume 11.1 fL (9.4-12.3); Monocytes Absolute Auto 0.6 X10*3/uL (0.1-1.2); Monocytes Percent Auto 6.5 % (2-11); Neutrophils Absolute Auto 3.5 x10*3/uL (2.0-8.3); Neutrophils Percent Auto 39.9 % (45-73); Platelet Count 398 X10*3/uL (160-400); Red Blood Count 5.13 X10*6/uL (4.20-5.50); Red Cell Distribution Width 14.1 % (11.0-16.0); White Blood Count 8.9 X10*3/uL (4.8-10.8)
[2022-07-10 11:37] LABS: Prothrombin Time 36.2 SEC (10.0-13.1)
[2022-07-10 11:49] LABS: Alanine Aminotransferase 15 U/L (0-31); Albumin Level 4.4 g/dL (3.5-5.0); Alkaline Phosphatase 77 U/L (39-117); Anion Gap 15 (12-20); Aspartate Amino Transferase 13 U/L (5-31); Bilirubin Total 0.3 mg/dL (0.0-1.0); Blood Urea Nitrogen 19 mg/dL (9-16); Calcium 9.7 mg/dL (8.4-10.2); Carbon Dioxide 22 mmol/L (22-29); Chloride 109 mmol/L (96-108); Cholesterol 246 mg/dL; Estimated Glomerular Filt Rate > 60; Glucose Fasting 94 mg/dL (60-99); HDL Cholesterol 47 mg/dL; LDL Cholesterol Calculated 161 mg/dl; Potassium 4.5 mmol/L (3.3-5.1); Sodium 141 mmol/L (135-145); Total Protein 7.1 g/dL (6.5-8.0); Triglycerides 190 mg/dL
== END 2022-07-10 06:32 | disposition home or self-care (01) ==
LOC: HO.HMGCLDS 06:31
PROVIDERS: PCP Internal Medicine; Visit Provider Internal Medicine
DX: D68.51 Activated protein C resistance (principal); E53.8 Deficiency of other specified B group vitamins; E78.9 Disorder of lipoprotein metabolism, unspecified; K21.9 Gastro-esophageal reflux disease without esophagitis; Z72.0 Tobacco use; Z79.01 Long term (current) use of anticoagulants
CPT/HCPCS: 36415; 80053; 80061; 85025; 85610

== ENCOUNTER 2022-09-13 13:23 | Outpatient (REF) | payer MEDICARE, MEDICAID, SELFPAY ==
[2022-09-13 16:43] LABS: INTERNATIONAL NORM RATIO 3.5 (0.9-1.1); Prothrombin Time 42.8 SEC (10.0-13.1)
== END 2022-09-13 13:24 | disposition home or self-care (01) ==
LOC: HO.HMGCLDS 13:23
PROVIDERS: PCP Internal Medicine; Visit Provider Internal Medicine
DX: D68.51 Activated protein C resistance (principal); Z79.01 Long term (current) use of anticoagulants
CPT/HCPCS: 36415; 85610

== ENCOUNTER 2022-11-17 10:50 | Outpatient (REF) | payer MEDICARE, MEDICAID, SELFPAY ==
[2022-11-17 14:23] LABS: INTERNATIONAL NORM RATIO 1.6 (0.9-1.1); Prothrombin Time 19.1 SEC (10.0-13.1)
== END 2022-11-17 10:51 | disposition home or self-care (01) ==
LOC: HO.HMGCLDS 10:50
PROVIDERS: PCP Internal Medicine; Visit Provider Internal Medicine
DX: D68.51 Activated protein C resistance (principal); Z79.01 Long term (current) use of anticoagulants
CPT/HCPCS: 36415; 85610

== ENCOUNTER 2023-01-06 08:34 | Outpatient (REF) | payer MEDICARE, MEDICAID, SELFPAY ==
[2023-01-06 11:30] LABS: INTERNATIONAL NORM RATIO 2.5 (0.9-1.1); Prothrombin Time 29.9 SEC (10.0-13.1)
== END 2023-01-06 08:35 | disposition home or self-care (01) ==
LOC: HO.HMGCLDS 08:34
PROVIDERS: PCP Internal Medicine; Visit Provider Internal Medicine
DX: D68.51 Activated protein C resistance (principal); Z79.01 Long term (current) use of anticoagulants
CPT/HCPCS: 36415; 85610

== ENCOUNTER 2023-03-09 08:51 | Outpatient (AMB) | payer MEDICARE, MEDICAID, SELFPAY ==
[2023-03-09 08:52] VITALS: BP 110/68; PULSE 64; O2SAT 95; BMI 32.1
--- NOTE | 2023-03-09 08:52 | A.OFFPC_ITS ---
Vital Signs 03/09/23 08:52 Height 5 ft 2 in Weight 175 lb 4 oz BMI 32.1 BP 110/68 Blood Pressure Location Lt brachial Position Sitting Pulse 64 Pulse Source Pulse Oximeter Pulse Oximetry (%) 95 Oxygen Delivery Method Room Air Intake Visit Reasons: 5m follow up Allergies aspirin Allergy (Unknown, Verified 03/09/23 08:53) anaphylaxis NSAIDS (Non-Steroidal Anti-Inflamma Adverse Reaction (Verified 03/09/23 08:53) Abdominal Pain Medication List - Last Reconciled 03/09/23 by Shilo Combs MD buspirone 10 mg PO TID 7 days cyanocobalamin (vitamin B-12) 1,000 mcg PO DAILY 90 days ondansetron HCl 4 mg PO Q8H PRN 7 days ProAir HFA 90 mcg/actuation (albuterol sulfate) 1 puff PO QID PRN NS warfarin 5 mg See Protocol PO DAILY 90 days Tobacco use date assessed: 03/09/23 Dental Screening Dental Screen Date: 03/09/23 Did you have a dental visit in the last 12 months?: Yes Did you have a dental problem in the last 6 months where you did not have access to dental care?: No Was dental information given to patient?: Patient has dentist HPI 5m follow up HPI Details 62-year-old female came in today for her regular follow-up appointment Continued to smoke, patient says that she has tried gum but it did not work she is not ready Patient have asthma COPD overlap syndrome, currently only using ProAir as needed On physical examination there is slight wheezing posterior lung bases I have sent Breo inhaler for the patient patient was instructed to rinse her mouth after use. She has finally found her own place and her anxiety is better, she is hardly taking BuSpar ever. Patient have elevated lipids but does not monitor take medication, she says that she will take her risk off clogged arteries. She is due for labs which I have order to be done today. Patient is also on warfarin for clotting disorder. And B12 PFSH Medical History Memory difficulties Smoker Dyspnea on exertion Osteopenia Shortness of breath Tobacco abuse Difficulty sleeping Anxiety, generalized Headache syndrome Warfarin anticoagulation Factor 5 Leiden mutation, heterozygous Surgical History History of tubal ligation History of ankle surgery Family History Father No problems noted. Mother HTN (hypertension) Stroke Factor V Leiden Sister No problems noted. 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 1. Little interest or pleasure in doing things: several days 2. Feeling down, depressed, or hopeless: several days 3. Trouble falling or staying asleep, or sleeping too much: nearly every day 4. Feeling tired or having little energy: more than half the days 5. Poor appetite or overeating: several days 6. Feeling bad about yourself - or that you are a failure or have let yourself or your family down: nearly every day 7. Trouble concentrating on things, such as reading the newspaper or watching television: not at all 8. Moving or speaking so slowly that other people could have noticed. Or the opposite - being so fidgety or restless that you have been moving around a lot more than usual: not at all 9. Thoughts that you would be better off or of hurting yourself in some way: not at all Total score: 11 Depression Screening Interpretation: Positive 12921 - PHQ-9 Billing: Yes Source: Developed by Drs. Sarbjit Moore, Brandy Galindo, Lucas Francois and colleagues, with an educational anita from [employer]. Thrive Questionnaire Date Thrive assessed: 07/09/22 AUDIT C Alcohol Use Questionnaire (AUDIT-C) 1. How often do you have a drink containing alcohol?: Never 3. How often do you have six or more drinks on one occasion?: Never Total Score: 0 Score Reviewed/Action Taken: Yes ELE-7 AMB Questionnaire ELE-7 Date ELE - 7 assessed: 07/09/22 Source: Developed by Drs. Sarbjit Moore, Brandy Galindo, Lucas Francois and colleagues, with an educational anita from [employer]. Review of Systems Const Denies chills and Denies fever(s) ENT Denies epistaxis and Denies nasal discharge Card Denies chest pain Resp Denies chest congestion, Denies cough and Denies hemoptysis GI Denies diarrhea and Denies nausea Skin/Breast Denies rash Neuro Reports no additional complaints Psych Reports no additional complaints Endo Reports no additional complaints Physical exam (Primary Care) Vital Signs: Last Vital Signs Pulse 64 03/09/23 08:52 BP 110/68 03/09/23 08:52 Pulse Ox 95 03/09/23 08:52 Oxygen Delivery Method Room Air 03/09/23 08:52 BMI result Body Mass Index 32.1 Tobacco/Smoking Status: Tobacco use Status Tobacco use date assessed 03/09/23 03/09/23 08:53 Patient Tobacco Use Status Current everyday Tobacco 03/09/23 08:53 Tobacco use type Cigarette 03/09/23 08:53 e-Cigarette/Vaping Use Former Use 03/09/23 08:53 Depression Screening Interpretation: Positive Thrive Assessment: Date of Thrive Assessment Date Thrive assessed 07/09/22 03/09/23 08:53 Const General: cooperative, comfortable and no acute distress Orientation/consciousness: patient oriented x3 HENMT Head: Yes normocephalic Eyes General: appearance normal, both eyes and all related structures Neck Neck: Yes supple Resp Effort & Inspection: normal respiratory effort, no cough and no stridor Cardio Rhythm: regular rhythm Heart sounds: S1 normal heart sound present and S2 normal heart sound present Skin General skin exam: turgor normal Neuro General: patient oriented x3, tone normal and moves all extremities Extrem Right lower extremity: no edema Left lower extremity: no edema Assessment and Plan Assessment & Plan (1) Major depression, recurrent: Code(s): F33.9 - Major depressive disorder, recurrent, unspecified (2) Asthma-COPD overlap syndrome: Code(s): J44.9 - Chronic obstructive pulmonary disease, unspecified (3) Lipid disorder: Code(s): E78.9 - Disorder of lipoprotein metabolism, unspecified (4) Tobacco abuse: Comment: Smoking damages our blood vessels, causes scaring of lungs leading to COPD and shortness of breath. It can also cause coronary artery disease leading to heart attack, and can cause degenerative disc disease , it can also predispose our body to certain cancers. Try to decrease cigarette use by 1 to 2 cigarettes/ week. When you are ready to quit let your primary care Know, or you can buy the nicotine patches there [id number]. Code(s): Z72.0 - Tobacco use (5) Anxiety, generalized: Code(s): F41.1 - Generalized anxiety disorder (6) Low vitamin B12 level: Code(s): E53.8 - Deficiency of other specified B group vitamins Plan 62-year-old female came in today for her regular follow-up appointment Continued to smoke, patient says that she has tried gum but it did not work she is not ready Patient have asthma COPD overlap syndrome, currently only using ProAir as needed On physical examination there is slight wheezing posterior lung bases I have sent Breo inhaler for the patient patient was instructed to rinse her mouth after use. She has finally found her own place and her anxiety is better, she is hardly taking BuSpar ever. Patient have elevated lipids but does not monitor take medication, she says that she will take her risk off clogged arteries. She is due for labs which I have order to be done today. Patient is also on warfarin for clotting disorder. And B12 Orders: Orders Complete Blood Count Auto Diff Today E78.9 - Disorder of lipoprotein metabolism, unspecified, F33.9 - Major depressive disorder, recurrent, unspecified, F41.1 - Generalized anxiety disorder, J44.9 - Chronic obstructive pulmonary disease, unspecified, Z72.0 - Tobacco use Comprehensive Met. Panel Today E78.9 - Disorder of lipoprotein metabolism, unspecified, F33.9 - Major depressive disorder, recurrent, unspecified, F41.1 - Generalized anxiety disorder, J44.9 - Chronic obstructive pulmonary disease, unspecified, Z72.0 - Tobacco use LDL Cholesterol Direct Today E78.9 - Disorder of lipoprotein metabolism, unspecified, F33.9 - Major depressive disorder, recurrent, unspecified, F41.1 - Generalized anxiety disorder, J44.9 - Chronic obstructive pulmonary disease, unspecified, Z72.0 - Tobacco use Vitamin B12 Today E53.8 - Deficiency of other specified B group vitamins Medications: New Breo Ellipta 100-25 mcg/dose (fluticasone furoate-vilanterol) 1 inh inhalation DAILY 60 ea 0RF NS Refilled ProAir HFA 90 mcg/actuation (albuterol sulfate) 1 puff PO QID PRN 8.5 grams 2RF for wheezing NS R06.02 - Shortness of breath Coding Level of Care Code Est Pt Level 4 (65766) Diagnoses Major depression, recurrent F33.9 Asthma-COPD overlap syndrome J44.9 Lipid disorder E78.9 Tobacco abuse Z72.0 Anxiety, generalized F41.1 Low vitamin B12 level E53.8
== END 2023-03-09 09:17 | disposition home or self-care (01) ==
PROVIDERS: Visit Provider Internal Medicine
DX: F33.9 Major depressive disorder, recurrent, unspecified (principal); J44.9 Chronic obstructive pulmonary disease, unspecified; E78.9 Disorder of lipoprotein metabolism, unspecified; Z72.0 Tobacco use; F41.1 Generalized anxiety disorder; E53.8 Deficiency of other specified B group vitamins
CPT/HCPCS: 99214

== ENCOUNTER 2023-03-09 09:23 | Outpatient (REF) | payer MEDICARE, MEDICAID, SELFPAY ==
[2023-03-09 11:58] LABS: MANUAL DIFF FLAG NO
[2023-03-09 12:05] LABS: Basophils Absolute Auto 0.1 X10*3/uL (0.0-0.2); Basophils Percent Auto 0.8 % (0-2); Eosinophils Absolute Auto 0.2 X10*3/uL (0.0-0.4); Eosinophils Percent Auto 2.8 % (0-4); Hematocrit 43.4 % (37.0-47.0); Hemoglobin 14.4 g/dl (12.0-16.0); Imm Gran Abs Auto 0.02 X10*3/uL (0.00-0.03); Imm Gran Pct Auto 0.2 % (0.0-0.4); Lymphocytes Absolute Auto 4.3 X10*3/uL (1.2-4.9); Lymphocytes Percent Auto 50.5 % (20-40); Mean Corpuscular HGB Conc 33.2 g/dl (31.0-35.0); Mean Corpuscular Hemoglobin 30.3 pg (27.0-33.0); Mean Corpuscular Volume 91.2 fL (80.0-98.0); Mean Platelet Volume 10.6 fL (9.4-12.3); Monocytes Absolute Auto 0.4 X10*3/uL (0.1-1.2); Neutrophils Absolute Auto 3.4 x10*3/uL (2.0-8.3); Neutrophils Percent Auto 40.7 % (45-73); Platelet Count 381 X10*3/uL (160-400); Red Blood Count 4.76 X10*6/uL (4.20-5.50); Red Cell Distribution Width 13.9 % (11.0-16.0); White Blood Count 8.4 X10*3/uL (4.8-10.8)
[2023-03-09 12:06] LABS: INTERNATIONAL NORM RATIO 3.3 (0.9-1.1); Prothrombin Time 40.1 SEC (11.1-13.3)
[2023-03-09 13:16] LABS: Alanine Aminotransferase 18 U/L (0-31); Albumin Level 4.3 g/dL (3.5-5.0); Alkaline Phosphatase 71 U/L (39-117); Anion Gap 13 (12-20); Aspartate Amino Transferase 19 U/L (5-31); Bilirubin Total 0.2 mg/dL (0.0-1.0); Blood Urea Nitrogen 16 mg/dL (9-16); Calcium 9.3 mg/dL (8.4-10.2); Carbon Dioxide 22 mmol/L (22-29); Chloride 110 mmol/L (96-108); Estimated Glomerular Filt Rate > 60; Glucose Random 82 mg/dL (60-115); Potassium 3.8 mmol/L (3.3-5.1); Sodium 141 mmol/L (135-145); Total Protein 7.2 g/dL (6.5-8.0)
[2023-03-09 13:34] LABS: Vitamin B12 418 pg/mL (200-900)
[2023-03-12 05:08] LABS: LDL Cholesterol Direct 154 mg/dL (<100)
== END 2023-03-09 09:24 | disposition home or self-care (01) ==
LOC: HO.HMGCLR 09:23
PROVIDERS: PCP Internal Medicine; Visit Provider Internal Medicine
DX: F33.9 Major depressive disorder, recurrent, unspecified (principal); J44.9 Chronic obstructive pulmonary disease, unspecified; E78.9 Disorder of lipoprotein metabolism, unspecified; F41.1 Generalized anxiety disorder; E53.8 Deficiency of other specified B group vitamins; Z72.0 Tobacco use; Z79.01 Long term (current) use of anticoagulants
CPT/HCPCS: 36415; 80053; 82607; 83721; 85025; 85610

== ENCOUNTER 2023-07-12 08:18 | Outpatient (REF) | payer MEDICARE, SELFPAY ==
[2023-07-12 12:00] LABS: INTERNATIONAL NORM RATIO 1.5 (0.9-1.1)
== END 2023-07-12 08:19 | disposition home or self-care (01) ==
LOC: HO.HMGCLR 08:18
PROVIDERS: PCP Internal Medicine; Visit Provider Internal Medicine
DX: Z79.01 Long term (current) use of anticoagulants (principal)
CPT/HCPCS: 36415; 85610

== ENCOUNTER 2023-07-12 08:29 | Outpatient (AMB) | payer MEDICARE, SELFPAY ==
[2023-07-12 08:32] VITALS: BP 122/90; PULSE 66; O2SAT 96; BMI 31.8
--- NOTE | 2023-07-12 08:32 | A.OFFPC_ITS ---
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 Required: No Allergies aspirin Allergy (Unknown, Verified 07/12/23 08:40) anaphylaxis NSAIDS (Non-Steroidal Anti-Inflamma Adverse Reaction (Verified 07/12/23 08:40) Abdominal Pain Medication List - Last Reconciled 07/12/23 by Shilo Combs MD ProAir HFA 90 mcg/actuation (albuterol sulfate) 1 puff PO QID PRN NS warfarin 5 mg See Protocol PO DAILY 90 days Tobacco use date assessed: 07/12/23 Dental Screening Dental Screen Date: 07/12/23 Did you have a dental visit in the last 12 months?: Yes Did you have a dental problem in the last 6 months where you did not have access to dental care?: No Was dental information given to patient?: Patient has dentist HPI 4 month fu HPI Details 62-year-old female came in today for her regular follow-up appointment Continued to smoke, once again patient was instructed to stop as soon as possible If she needs any help patient is to reach out to me, she has already tried nicotine gum but that did not work for the patient Patient have asthma COPD overlap syndrome, currently only using ProAir as needed She had Breo but she has not been using, I have discussed with the patient and convinced her to start using it. She has finally found her own place however she is dealing with coat dates that her daughter has to attend Daughter is sharing a building with for other tenants who are harassing her so she has been dealing with court visits. Patient says that her anxiety gets so worse before the court visits that she start trembling and feels as if she is going to pass out I have sent lorazepam 0.5 mg tablet she may take [address] She is tells try to find therapist for Patient says that it took 3 months for [facility] to have someone call her, but that therapist could not help her granddaughter Even though patient is on daughter tried to commit suicide because of the stress she was going through in life Patient says that she did not wanted that therapist who has not been able to help her granddaughter So she is now waiting for a different therapist to call. Patient says that she gets stressed out that her stomach hurts and then sometimes when she have a bowel movement she have a blood in it She brought in a picture of her bowel movement which had bright red blood, she is due for colonoscopy that she is declining, we discussed it further, patient says that she will get back to me on that next visit, she does have hemorrhoids as well Patient have elevated lipids but does not but does not want to take medication, patient is aware of risk associated with elevated lipids Labs done last visit in February Patient is also on warfarin for clotting disorder. And B12 Follow-up 3 months [facility] Medical History Memory difficulties Smoker Dyspnea on exertion Osteopenia Shortness of breath Tobacco abuse Difficulty sleeping Anxiety, generalized Headache syndrome Warfarin anticoagulation Factor 5 Leiden mutation, heterozygous Surgical History History of tubal ligation History of ankle surgery Family History Father No problems noted. Mother HTN (hypertension) Stroke Factor V Leiden Sister No problems noted. 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 1. Little interest or pleasure in doing things: not at all 2. Feeling down, depressed, or hopeless: not at all 3. Trouble falling or staying asleep, or sleeping too much: not at all 4. Feeling tired or having little energy: not at all 5. Poor appetite or overeating: not at all 6. Feeling bad about yourself - or that you are a failure or have let yourself or your family down: not at all 7. Trouble concentrating on things, such as reading the newspaper or watching television: not at all 8. Moving or speaking so slowly that other people could have noticed. Or the opposite - being so fidgety or restless that you have been moving around a lot more than usual: not at all 9. Thoughts that you would be better off or of hurting yourself in some way: not at all Total score: 0 Depression Screening Interpretation: Negative Depression Screening Done: Yes 56954 - PHQ-9 Billing: Yes Source: Developed by Drs. Sarbjit Moore, Brandy Galindo, Lucas Francois and colleagues, with an educational anita from [employer]. Thrive Questionnaire Date Thrive assessed: 07/12/23 I am a: Patient What is your living situation today?: I have a steady place to live Within the past 12 months, did the food you bought not last and you didn't have the money to get more?: Never true Within the past 12 months, did you worry whether your food would run out before you got money to buy more?: Never true Do you have trouble paying for medicines?: No Do you have trouble getting transportation to medical appointments?: No Do you have trouble paying your heating and electricity bill?: No Do you have trouble taking care of your child, family member or friend?: No Do you have trouble with day-to-day activities such as bathing, preparing meals, shopping, managing finances, etc.?: No Are you currently unemployed and looking for a job?: No Are you interested in more education?: No Please select the resources that you would like help with: None Currently or been in a relationship where the following occur: no concerns reported THRIVE Score: 0 AUDIT C Alcohol Use Questionnaire (AUDIT-C) 1. How often do you have a drink containing alcohol?: Never 3. How often do you have six or more drinks on one occasion?: Never Total Score: 0 Score Reviewed/Action Taken: Yes ELE-7 AMB Questionnaire ELE-7 Date ELE - 7 assessed: 01/23/24 Feeling nervous, anxious, or on edge: 0 = Not at all Not being able to stop or control worryin = Not at all Worrying too much about different things: 0 = Not at all Trouble relaxin = Not at all Being so restless that it is hard to sit still: 0 = Not at all Becoming easily annoyed or irritable: 0 = Not at all Feeling afraid as if something awful might happen: 0 = Not at all Total ELE-7 score (0-4 normal; 5-9 mild; 10-14 moderate; 15-21 severe): 0 Source: Developed by Drs. Sarbjit Moore, Brandy Galindo, Lucas Francois and colleagues, with an educational anita from [employer]. ELE-7 Assessment Billing ELE-7 Assessment Tool: ELE-7 Assessment 17808 Review of Systems Const Denies chills and Denies fever(s) ENT Denies epistaxis and Denies nasal discharge Card Denies chest pain Resp Denies chest congestion, Denies cough and Denies hemoptysis GI Denies diarrhea and Denies nausea Skin/Breast Denies rash Neuro Reports no additional complaints Psych Reports no additional complaints Endo Reports no additional complaints Physical exam (Primary Care) Vital Signs: Last Vital Signs Pulse 66 07/12/23 08:32 BP 122/90 H 07/12/23 08:32 Pulse Ox 96 07/12/23 08:32 Oxygen Delivery Method Room Air 07/12/23 08:32 BMI result Body Mass Index 31.8 Tobacco/Smoking Status: Tobacco use Status Tobacco use date assessed 07/12/23 07/12/23 08:41 Patient Tobacco Use Status Current everyday Tobacco 07/12/23 08:37 Tobacco use type Cigarette 07/12/23 08:37 e-Cigarette/Vaping Use Former Use 07/12/23 08:37 PHQ-9: PHQ-9 Score PHQ-9: Total score 0 07/12/23 10:17 Depression Screening Interpretation: Negative Thrive Assessment: Date of Thrive Assessment Date Thrive assessed 07/12/23 07/12/23 10:17 Currently or been in a relationship where the following occur: no concerns reported Const General: cooperative, comfortable and no acute distress Orientation/consciousness: patient oriented x3 HENMT Head: Yes normocephalic Eyes General: appearance normal, both eyes and all related structures Neck Neck: Yes supple Resp Effort & Inspection: normal respiratory effort, no cough and no stridor Cardio Rhythm: regular rhythm Heart sounds: S1 normal heart sound present and S2 normal heart sound present Skin General skin exam: turgor normal Neuro General: patient oriented x3, tone normal and moves all extremities Extrem Right lower extremity: no edema Left lower extremity: no edema Assessment and Plan Assessment & Plan (1) Major depression, recurrent: Code(s): F33.9 - Major depressive disorder, recurrent, unspecified Qualifiers: Active/Remission status: in partial remission Qualified Code(s): F33.41 - Major depressive disorder, recurrent, in partial remission (2) Asthma-COPD overlap syndrome: Code(s): J44.9 - Chronic obstructive pulmonary disease, unspecified (3) Lipid disorder: Code(s): E78.9 - Disorder of lipoprotein metabolism, unspecified (4) Anxiety, generalized: Code(s): F41.1 - Generalized anxiety disorder (5) Low vitamin B12 level: Code(s): E53.8 - Deficiency of other specified B group vitamins (6) Bright red blood per rectum: Code(s): K62.5 - Hemorrhage of anus and rectum (7) Stress: Code(s): F43.9 - Reaction to severe stress, unspecified (8) GERD (gastroesophageal reflux disease): Code(s): K21.9 - Gastro-esophageal reflux disease without esophagitis Qualifiers: Esophagitis presence: without esophagitis Qualified Code(s): K21.9 - Gastro-esophageal reflux disease without esophagitis (9) Colonoscopy refused: Code(s): Z53.20 - Procedure and treatment not carried out because of patient's decision for unspecified reasons (10) Smoking: Comment: History of smoking for more than 40 years. Now down to 10 cigarettes a day. Wants to quit but has had difficulty. Does not want to join quit smoking program. Wants to try a nicotine gum which has been ordered. She does have the nicotine gum at home. I have stressed that she should start using it and she should try to down her smoking as much as possible. I had recommended heard to join annual lung screening program, but she does not want to do it. I just do not want to know if I have cancer Code(s): F17.200 - Nicotine dependence, unspecified, uncomplicated (11) Factor 5 Leiden mutation, heterozygous: Comment: She has had DVT in the past. She stays on warfarin for anticoagulation Code(s): D68.51 - Activated protein C resistance (12) Osteopenia: Code(s): M85.80 - Other specified disorders of bone density and structure, unspecified site Qualifiers: Osteopenia location: unspecified Qualified Code(s): M85.80 - Other specified disorders of bone density and structure, unspecified site (13) Nicotine dependence: Code(s): F17.200 - Nicotine dependence, unspecified, uncomplicated Qualifiers: Nicotine product type: cigarettes Substance use status: uncomplicated Qualified Code(s): F17.210 - Nicotine dependence, cigarettes, uncomplicated (14) Obesity due to excess calories: Code(s): E66.09 - Other obesity due to excess calories Qualifiers: Body mass index: BMI 31.0-31.9 Obesity classification: adult class 1 (BMI 30 - 34.9) Serious obesity comorbidity presence: with serious comorbidity Qualified Code(s): E66.09 - Other obesity due to excess calories; Z68.31 - Body mass index [BMI] 31.0-31.9, adult Plan 62-year-old female came in today for her regular follow-up appointment Continued to smoke, once again patient was instructed to stop as soon as possible If she needs any help patient is to reach out to me, she has already tried nicotine gum but that did not work for the patient Patient have asthma COPD overlap syndrome, currently only using ProAir as needed She had Breo but she has not been using, I have discussed with the patient and convinced her to start using it. She has finally found her own place however she is dealing with coat dates that her daughter has to attend Daughter is sharing a building with for other tenants who are harassing her so she has been dealing with court visits. Patient says that her anxiety gets so worse before the court visits that she start trembling and feels as if she is going to pass out I have sent lorazepam 0.5 mg tablet she may take [address] She is tells try to find therapist for Patient says that it took 3 months for [facility] to have someone call her, but that therapist could not help her granddaughter Even though patient is on daughter tried to commit suicide because of the stress she was going through in life Patient says that she did not wanted that therapist who has not been able to help her granddaughter So she is now waiting for a different therapist to call. Patient says that she gets stressed out that her stomach hurts and then sometimes when she have a bowel movement she have a blood in it She brought in a picture of her bowel movement which had bright red blood, she is due for colonoscopy that she is declining, we discussed it further, patient says that she will get back to me on that next visit, she does have hemorrhoids as well Patient have elevated lipids but does not but does not want to take medication, patient is aware of risk associated with elevated lipids Labs done last visit in February Patient is also on warfarin for clotting disorder. And B12 Follow-up 3 months Medications: New lorazepam 0.5 mg PO DAILY PRN 30 tabs 0RF anxiety 30 days Coding Level of Care Code Est Pt Level 5 (28647) Diagnoses Recurrent major depressive disorder, in partial remission F33.41 Active/Remission status: in partial remission Asthma-COPD overlap syndrome J44.9 Lipid disorder E78.9 Anxiety, generalized F41.1 Low vitamin B12 level E53.8 Bright red blood per rectum K62.5 Stress F43.9 Gastroesophageal reflux disease without esophagitis K21.9 Esophagitis presence: without esophagitis Colonoscopy refused Z53.20 Smoking F17.200 Factor 5 Leiden mutation, heterozygous D68.51 Osteopenia, unspecified location M85.80 Osteopenia location: unspecified Cigarette nicotine dependence without complication F17.210 Nicotine product type: cigarettes Substance use status: uncomplicated Class 1 obesity due to excess calories with serious comorbidity and body mass index (BMI) of 31.0 to 31.9 in adult E66.09; Z68.31 Body mass index: BMI 31.0-31.9 Obesity classification: adult class 1 (BMI 30 - 34.9) Serious obesity comorbidity presence: with serious comorbidity Additional Codes ELE-7 Assessment Billing - ELE-7 Assessment Tool: ELE-7 Assessment 00671 ([id number])
== END 2023-07-12 11:53 | disposition home or self-care (01) ==
PROVIDERS: PCP Internal Medicine; Visit Provider Internal Medicine
DX: J44.9 Chronic obstructive pulmonary disease, unspecified (principal); F33.41 Major depressive disorder, recurrent, in partial remission; D68.51 Activated protein C resistance; E78.9 Disorder of lipoprotein metabolism, unspecified; F41.1 Generalized anxiety disorder; E53.8 Deficiency of other specified B group vitamins; K62.5 Hemorrhage of anus and rectum; F43.9 Reaction to severe stress, unspecified; K21.9 Gastro-esophageal reflux disease without esophagitis; Z53.20 Procedure and treatment not carried out because of patient's decision for unspecified reasons; F17.200 Nicotine dependence, unspecified, uncomplicated; M85.80 Other specified disorders of bone density and structure, unspecified site
CPT/HCPCS: 99215

== ENCOUNTER 2024-11-26 06:40 | Day surgery (SDC) | payer MEDICARE, MEDICAID, SELFPAY ==
[2024-11-23 07:26] VITALS: BMI 33.1
--- NOTE | 2024-11-23 09:29 | HO.ANESPROP2 ---
HPI - Anesthesia Eval Consult details Narrative: 64yo F for Right Cataract Extraction IOL Insertion Left eye 2021: Fent 50, Midaz 2 Warfarfin for DVT/Factor 5 PMFSH Active Problems Active Problems: All Active Problems Obesity due to excess calories (Acute) Nicotine dependence (Acute) Stress (Acute) Bright red blood per rectum (Acute) Asthma-COPD overlap syndrome (Acute) Major depression, recurrent (Acute) Cataract (Acute) Current use of anticoagulant therapy (Acute) Wheezing (Acute) Difficulty breathing (Acute) Left leg swelling (Acute) Smoking (Acute) Precordial chest pain (Acute) Abnormal EKG (Acute) Encounter for routine gynecological examination (Acute) Glaucoma, left eye (Acute) Colonoscopy refused (Acute) Breast screening (Acute) Medicare annual wellness visit, initial (Acute) Lipid disorder (Acute) Low vitamin B12 level (Acute) Chronic fatigue (Acute) Muscle spasms of both lower extremities (Acute) Pre-op evaluation (Acute) Cough (Acute) Nocturia (Acute) GERD (gastroesophageal reflux disease) (Acute) Dyspnea on exertion (Acute) Factor 5 Leiden mutation, heterozygous (Acute) Warfarin anticoagulation (Acute) Headache syndrome (Acute) Anxiety, generalized (Acute) Difficulty sleeping (Acute) Tobacco abuse (Acute) Shortness of breath (Acute) Osteopenia (Acute) Past Medical History Medical History Asthma COPD (chronic obstructive pulmonary disease) Depression Renal calculi Osteopenia Migraine Insomnia DVT (deep venous thrombosis) Glaucoma Memory difficulties Smoker Dyspnea on exertion Osteopenia Shortness of breath Tobacco abuse Difficulty sleeping Anxiety, generalized Headache syndrome Warfarin anticoagulation Factor 5 Leiden mutation, heterozygous Family History Family History Father No problems noted. Mother HTN (hypertension) Stroke Factor V Leiden Sister No problems noted. Other Mental health disorder Family history of problems with anesthesia: No Surgical History Surgical History History of tubal ligation History of ankle surgery History of Problems with Anesthesia: No Social History Social History Housing: House Housing Other:: Rents room in Sisters house Are you a primary foster care worker to a significant other at home: No Do you presently have visiting nurse or other home services: No Alcohol intake: never Patient Tobacco Use Status: Current everyday Tobacco user Tobacco use type: Cigarette Cigarette Packs Per Day: 0.35 Cigarettes Per Day: 10 Years Smoked: 50 Smoked in Last 30 Days: Yes e-Cigarette/Vaping Use: Former Use Second Hand Smoke Exposure: No Use of substances other than those prescribed or required for medical reasons: No Have you been hit, kicked, punched, or otherwise hurt by someone within the past year? 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 Current occupational exposures/hazards: No Cognitive needs: No Hearing needs: No Vision needs: Yes Meds Allergies Allergy/AdvReac Type Severity Reaction Status Date / Time aspirin Allergy Unknown Abdominal Verified 11/26/24 06:59 Pain Iodinated Contrast Media Allergy Hives Verified 11/26/24 06:59 (Contrast Dye) NSAIDS (Non-Steroidal AdvReac Abdominal Verified 11/26/24 06:59 Anti-Inflamma Pain Home Medications ?Medication ?Instructions ?Recorded ?Confirmed ?Last Taken ?Type albuterol sulfate 90 mcg/actuation 1 puff inhalation Q4H PRN wheezing 11/23/24 11/26/24 Unknown History aerosol inhaler famotidine 40 mg tablet 40 mg PO BEDTIME 11/23/24 11/26/24 Unknown History fluticasone furoate 100 1 ea inhalation DAILY 11/23/24 11/26/24 Unknown History mcg-vilanterol 25 mcg/dose inhalation powder (Breo Ellipta) vitamin B complex 1 tab PO DAILY 11/23/24 11/26/24 Unknown History ascorbic acid (vitamin C) 1,000 mg 11/26/24 11/26/24 Unknown History tablet (Vitamin C) Exam Height,Weight and Vital Signs: Height 5 ft 2.2 in Weight 82.6 kg Assessment and Plan Assessment Anesthesia Assessment: Chart Reviewed Final Anesthetic Review Family History of Problems with Anesthesia: No History of Problems with Anesthesia: No
[2024-11-26 07:04] VITALS: BP 115/69; PULSE 62; RESP 17; TEMP 36.3; O2SAT 97; BMI 33.2
[2024-11-26 07:06] VITALS: BMI 33.2
[2024-11-26] MEDS: Cyclopentolate 1 % Ophth Sol 2 ML DRPBTL 1 DROP EYE-RIGHT ×3 (07:08→07:19)
[2024-11-26] MEDS: Tetracaine HCl/PF 0.5% Oph Sol 4 ML DROPS 1 DROP EYE-RIGHT (07:08)
[2024-11-26] MEDS: Phenylephrine HCL 2.5% Oph SoL 2 ML BOTTLE 1 DROP EYE-RIGHT ×3 (07:09→07:19)
[2024-11-26] MEDS: Tropicamide 1 % Ophth Sol 3 ML BTL 1 DROP EYE-RIGHT ×3 (07:15→07:20)
[2024-11-26] MEDS: Lactated Ringers 500 ML 50 ML IV (07:18)
--- NOTE | 2024-11-26 07:34 | P.CONAN_ITS ---
FORM[facility]LY [facility] Active Problems Active Problems: All Active Problems Obesity due to excess calories (Acute) Nicotine dependence (Acute) Stress (Acute) Bright red blood per rectum (Acute) Asthma-COPD overlap syndrome (Acute) Major depression, recurrent (Acute) Cataract (Acute) Current use of anticoagulant therapy (Acute) Wheezing (Acute) Difficulty breathing (Acute) Left leg swelling (Acute) Smoking (Acute) Precordial chest pain (Acute) Abnormal EKG (Acute) Encounter for routine gynecological examination (Acute) Glaucoma, left eye (Acute) Colonoscopy refused (Acute) Breast screening (Acute) Medicare annual wellness visit, initial (Acute) Lipid disorder (Acute) Low vitamin B12 level (Acute) Chronic fatigue (Acute) Muscle spasms of both lower extremities (Acute) Pre-op evaluation (Acute) Cough (Acute) Nocturia (Acute) GERD (gastroesophageal reflux disease) (Acute) Dyspnea on exertion (Acute) Factor 5 Leiden mutation, heterozygous (Acute) Warfarin anticoagulation (Acute) Headache syndrome (Acute) Anxiety, generalized (Acute) Difficulty sleeping (Acute) Tobacco abuse (Acute) Shortness of breath (Acute) Osteopenia (Acute) Past Medical History Medical History Asthma COPD (chronic obstructive pulmonary disease) Depression Renal calculi Osteopenia Migraine Insomnia DVT (deep venous thrombosis) Glaucoma Memory difficulties Smoker Dyspnea on exertion Osteopenia Shortness of breath Tobacco abuse Difficulty sleeping Anxiety, generalized Headache syndrome Warfarin anticoagulation Factor 5 Leiden mutation, heterozygous Functional capacity: independent ambulation Patient : No Family History Family History Father No problems noted. Mother HTN (hypertension) Stroke Factor V Leiden Sister No problems noted. Other Mental health disorder Family history of problems with anesthesia: No Surgical History Surgical History History of tubal ligation History of ankle surgery History of Problems with Anesthesia: No Social History Social History Housing: House Housing Other:: Rents room in Sisters house Are you a primary home care giver to a significant other at home: No Do you presently have visiting nurse or other home services: No Alcohol intake: never Patient Tobacco Use Status: Current everyday Tobacco user Tobacco use type: Cigarette Cigarette Packs Per Day: 0.35 Cigarettes Per Day: 10 Years Smoked: 50 Smoked in Last 30 Days: Yes e-Cigarette/Vaping Use: Former Use Second Hand Smoke Exposure: No Use of substances other than those prescribed or required for medical reasons: No Have you been hit, kicked, punched, or otherwise hurt by someone within the past year? 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 Current occupational exposures/hazards: No Cognitive needs: No Hearing needs: No Vision needs: Yes Meds Allergies Allergy/AdvReac Type Severity Reaction Status Date / Time aspirin Allergy Unknown Abdominal Verified 11/26/24 06:59 Pain Iodinated Contrast Media Allergy Hives Verified 11/26/24 06:59 [Contrast Dye] NSAIDS (Non-Steroidal AdvReac Abdominal Verified 11/26/24 06:59 Anti-Inflamma Pain Active Medications: Current Medications Albuterol Sulfate (Albuterol Sulfate (0.083%) 2.5 Mg/3 Ml Vial.Neb) 2.5 mg INHALE ONCE PRN PRN Reason: Shortness of Breath/Wheezing Lactated Ringer's (Lr) 500 mls @ 50 mls/hr IV .Q10H ON LICENSE OF [facility] Stop: 11/26/24 16:59 Last Admin: 11/26/24 07:18 Dose: 50 mls/hr Ketorolac Tromethamine (Ketorolac Tromethamine 0.5% Op 5 Ml Drops) 1 drop EYE- RIGHT Q5M ON LICENSE OF [facility] Povidone Iodine (Povidone Iodine 5 % Ophth Soln 30 Ml Bottle) 1 appl EYE-RIGHT PREOP PRN PRN Reason: Pre-Op Surgical Implant Prophy Home Medications ?Medication ?Instructions ?Recorded ?Confirmed ?Last Taken ?Type albuterol sulfate 90 mcg/actuation 1 puff inhalation Q4H PRN wheezing 11/23/24 11/26/24 Unknown History aerosol inhaler famotidine 40 mg tablet 40 mg PO BEDTIME 11/23/24 11/26/24 Unknown History fluticasone furoate 100 1 ea inhalation DAILY 11/23/24 11/26/24 Unknown History mcg-vilanterol 25 mcg/dose inhalation powder (Breo Ellipta) vitamin B complex 1 tab PO DAILY 11/23/24 11/26/24 Unknown History ascorbic acid (vitamin C) 1,000 mg 11/26/24 11/26/24 Unknown History tablet (Vitamin C) Exam Height,Weight and Vital Signs: Height 5 ft 2.2 in Weight 82.9 kg Last Vital Signs Temp 97.3 F 11/26/24 07:04 Pulse 62 11/26/24 07:04 Resp 17 11/26/24 07:04 BP 115/69 11/26/24 07:04 Pulse Ox 97 11/26/24 07:04 O2 Del Method Room Air 11/26/24 07:04 Airway Mallampati Class: II TM Dist: >3cm Neck ROM: Full Heart: RRR Lungs: CTA Assessment and Plan Assessment Anesthesia Assessment: Anesthesia Plan Discussed and Smoking Cess. Discussed Final Anesthetic Review Family History of Problems with Anesthesia: No History of Problems with Anesthesia: No NPO: Yes ASA Class: II Final Preanesthetic Review: Meds/Allgs Chart Reviewed, Consent Obtained/Reviewed and Anes Risks/Benef Reviewed Patient Risk: Low Procedure Risk: Low Anesthetic Plan Anesthetic Plan: MAC: Disposition: Standard PACU
--- NOTE | 2024-11-26 07:40 | MHC.SHP ---
Pre-Procedural Eval Section A - 24 Hr Update-Section A only Date of Service: 11/26/24 The patient is an INPATIENT: No Changes since office visit: No Cold of Flu in the past 2 weeks, No New Medical Problems, No Changes in Medication and No Patient answered all questions The patient has been examined within 24 hours of the surgical procedure. The History & Physical has been completed within 30 days and I have reviewed it.: Yes Section B - Complete if H&P > 30 days Chief Complaint: Age-related nuclear cataract, right eye Allergies: Allergies Allergy/AdvReac Type Severity Reaction Status Date / Time aspirin Allergy Unknown Abdominal Verified 11/26/24 06:59 Pain Iodinated Contrast Media Allergy Hives Verified 11/26/24 06:59 [Contrast Dye] NSAIDS (Non-Steroidal AdvReac Abdominal Verified 11/26/24 06:59 Anti-Inflamma Pain Plan Diagnosis/Plan: Unchanged I have reviewed the history and physical and performed a pertinent physical examination on my patient. No changes have occurred unless specified. Time Spent With Patient Time: Total time managing care of this patient today ____ minutes.
--- NOTE | 2024-11-26 07:41 | P.PCNO_ITS ---
Ophthalmology Procedure Procedure Date of Service: 11/26/24 Ophthalmology Viscoelastic: Healon Duet Dual Pack Pro Ophthalmology Lenses: IOL Acrysof MP - [id number] (18.5) Procedure Notes: PREOPERATIVE DIAGNOSIS: Decreased visual acuity right eye secondary to cataract POSTOPERATIVE DIAGNOSIS: Same PROCEDURE: Right cataract extraction with intraocular lens insertion SURGEON: Francis Parker M.D. ANESTHESIA: Topical/MAC ESTIMATED BLOOD LOSS: None COMPLICATIONS: None After obtaining informed consent, the patient was brought to the operating room suite and placed in the supine position. After adequate sedation per anesthesia, topical drops of Tetracaine were given to the right eye. The eye was then prepped and draped in the usual sterile fashion. The operating room microscope was then positioned over the operative eye and a lid speculum placed. A paracentesis was created. Viscoelastic was then instilled into the anterior chamber. A three plane incision was then created temporally, utilizing a 2.85 mm keratome. Capsulotomy forceps were then utilized to create a circular tear capsulotomy. Hydrodissection and hydrodelineation were carried out until adequate mobilization of the nucleus occurred. Phacoemulsification was then utilized to remove the dense central nu cleus followed by removal of the cortical material utilizing the automated aspiration irrigation unit. Viscoelastic was instilled into the posterior capsular bag followed by placement of a posterior chamber intraocular lens without difficulty. The residual Viscoelastic was then removed utilizing the automated IA machine. The wound was checked and found to be watertight. The patient tolerated the procedure well and the lid speculum was removed. Intracameral injection of Vigamox 0.1 mL followed by a subtenon injection of Kenalog-40 0.2 mL were administered. The patient will be seen in the a.m.
[2024-11-26 08:17] VITALS: BP 145/74; PULSE 59; RESP 18; TEMP 36.4; O2SAT 97
--- NOTE | 2024-11-26 09:13 | HO.POSTANES ---
Post Anesthesia Evaluation Post Anesthesia Evaluation Date of Service: 11/26/24 Vital Signs: Vital Signs Temp Pulse Resp BP Pulse Ox O2 Del Method 11/26/24 08:17 97.6 F 59 18 145/74 H 97 Room Air 11/26/24 07:04 97.3 F 62 17 115/69 97 Room Air Anesthesia: Monitored Mental Status: Awake Pain Control: Satisfactory Nausea/Vomiting: None Hydration: Adequate Anesthesia-Related Issues: No Anes. Related Issues
== END 2024-11-26 08:23 | disposition home or self-care (01) ==
PROVIDERS: PCP Nurse Practitioner Family; Visit Provider Ophthalmology
PROC: (CPT 66985; principal; 2024-11-26 08:00)
DX: H25.11 Age-related nuclear cataract, right eye (principal); Z83.511 Family history of glaucoma; H54.7 Unspecified visual loss; H43.393 Other vitreous opacities, bilateral; H35.09 Other intraretinal microvascular abnormalities; H11.153 Pinguecula, bilateral; Z96.1 Presence of intraocular lens; J44.9 Chronic obstructive pulmonary disease, unspecified; Z79.01 Long term (current) use of anticoagulants; Z79.899 Other long term (current) drug therapy; Z88.6 Allergy status to analgesic agent; F17.210 Nicotine dependence, cigarettes, uncomplicated
CPT/HCPCS: 66984; J2250; J3301; V2630